=== PATIENT | male | born 1950 | race Caucasian/White ===

== ENCOUNTER → 2025-03-29 09:17 | Outpatient (REF) | payer MEDICARE, SELFPAY | LOC: RAD 09:17 | PROVIDERS: ATTENDING PHYSICIAN Internal Medicine | DX: E11.69 Type 2 diabetes mellitus with other specified complication (principal); R41.89 Other symptoms and signs involving cognitive functions and awareness; R42 Dizziness and giddiness | CPT/HCPCS: 70450; 93880 ==